=== PATIENT | female | born 1995 | race Caucasian/White ===

== ENCOUNTER 2016-10-04 02:25 | Observation (INO) | payer OTHER ==
[~2016-10-04] VITALS: Ht 144.8 cm; Wt 102.5 kg
[2016-10-04] MEDS ORDERED: TERBUTALINE 1 MG/ML VIAL SUBQ ONE (03:31)
[2016-10-04] MEDS: TERBUTALINE 1 MG/ML VIAL SUBQ SCH ×2 (03:32→04:24)
[2016-10-04 03:47] LABS: BILIRUBIN,URINE NEGATIVE (NEGATIVE); BLOOD, URINE NEGATIVE (NEGATIVE); COLOR,URINE YELLOW (YELLOW); LEUKOCYTE ESTERASE ,URINE NEGATIVE (NEGATIVE); NITRITE, URINE NEGATIVE (NEGATIVE); PROTEIN,URINE NEGATIVE (NEGATIVE); UGLUCOSE NEGATIVE (NEGATIVE)
[2016-10-04 03:51] LABS: APPEARANCE,URINE SLIGHTLY HAZY (CLEAR)
[2016-10-04 03:52] LABS: BACTERIA,URINE RARE /HPF (None Seen); MUCUS,URINE 4+ /LPF (None Seen); RBC,URINE 0-3 /HPF (0-5); WBC,URINE 0-3 /HPF (0-5)
[2016-10-04 03:59] VITALS: BP 104/71
[2016-10-04] MEDS ORDERED: TERBUTALINE 2.5 MG TAB ONE ×2 (07:58→11:56)
[2016-10-04] MEDS: TERBUTALINE 2.5 MG TAB PO SCH ×2 (08:00→11:55)
--- NOTE | 2016-10-04 08:20 | NUR ---
PATIENT HAS BEEN SCREENED AND CATEGORIZED LOW NUTRITION RISK. PATIENT WILL BE SEEN WITHIN 7 DAYS OF ADMISSION. 10/10/[address]
== END 2016-10-04 13:56 | disposition home or self-care, planned readmission (81) ==
LOC: MLD 02:25
PROVIDERS: ADMIT Obstetrics & Gynecology; ATTEND Obstetrics & Gynecology
DX: O26.893 Other specified pregnancy related conditions, third trimester (principal); R10.30 Lower abdominal pain, unspecified; Z3A.30 30 weeks gestation of pregnancy
CPT/HCPCS: 76805; 81001; 96372; C1758; G0378; J3105; Q0092